=== PATIENT | female | born 1995 | race Caucasian/White ===

== ENCOUNTER → 2018-01-01 11:49 | Emergency (ER) | payer OTHER ==
[~2018-01-01 11:49] MED LIST: Azithromycin TAB* 250 MG PO ONE; DOXYcycline CAP(*) 100 MG PO ONE; Ondansetron ODT TAB* 4 MG PO ONE; Raltegravir* 400 MG TAB PO ONE; Tenofovir/Emtricitabine(*) TAB PO ONE; metroNIDAZOLE TAB* 250 MG PO ONE
[2018-01-01 14:17] LABS: ABS Basophils 0 10^3/ul (0-0.2); ABS Eosinophils 0.1 10^3/ul (0-0.6); ABS Monocytes 1.1 10^3/ul (0-0.8); ABS Neutrophils 6.8 10^3/ul (1.5-7.7); ABS Nucleated RBC 0 10^3/ul; Eosinophil % 0.7 % (0-6); Hematocrit 37 % (35-47); Hemoglobin 12.4 g/dl (12.0-16.0); Lymphocyte % 33.4 % (25-47); Mean Corpuscular HGB Conc 33 g/dl (31-36); Mean Corpuscular Hemoglobin 26 pg (27-31); Mean Corpuscular Volume 78 fL (80-97); Mean Platelet Volume 9 um3 (7.4-10.4); Nucleated Red Blood Cells % 0.1; Platelet Count 319 10^3/ul (150-450); Red Blood Count 4.78 10^6/ul (4.0-5.4); Red Cell Distribution Width 14 % (10.5-15)
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
[2018-01-01 19:08] VITALS: BP 108/56
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
== END | disposition home or self-care (01) ==
LOC: ED 11:49
DX: T74.21XA Adult sexual abuse, confirmed, initial encounter (principal)
CPT/HCPCS: 36415; 80053; 84702; 85025; 86703; 86706; 86803; 87340; 87480; 87491; 87510; 87591; 87661; 99283; A9270-GY

== ENCOUNTER 2018-04-25 11:07 | Emergency (ER) | payer SELFPAY ==
[2018-04-25 11:26] VITALS: BP 110/71
--- NOTE | 2018-04-25 13:12 | RAD ---
INDICATION: Right elbow pain with finger numbness since a fall April 16, 2018 COMPARISON: None. TECHNIQUE: 4 views right elbow. REPORT: The visualized bones of the right elbow are well corticated and properly aligned. There is no radiographically apparent fracture or dislocation. There is no radiographic evidence of pathologic joint effusion. IMPRESSION: Normal radiograph of the right elbow. If the patient's symptoms persist further follow-up imaging is recommended.
--- NOTE | 2018-04-25 14:52 | UC ---
Humphrey Moss Stephanie, scribed for Perico Murcia MD on 04/25/18 at 1151 . Upper Extremity HPI - HPI Summary HPI Summary: In Room Note: The pt is a 22 y/o F presenting to with c/o right elbow pain s/ p fall on April 16 2018. Symptoms include numbness and pain up the UE. She denies recent similar incidence. Note: Vital signs stable, afebrile. Visit hx non-contributory, asthma, autism. Nurse Note: right elbow pain - History of Current Complaint Chief Complaint: UCUpperExtremity Stated Complaint: ELBOW INJURY Time Seen by Provider: 04/25/18 11:41 Hx Obtained From: Patient Hx Last Menstrual Period: 03/25/18 ?: No Onset/Duration: Sudden Onset, Lasting Days - 10, Still Present Severity Currently: Moderate Pain Intensity: 6 Pain Scale Used: 0-10 Numeric Location Of Pain: Is Discrete @ - R elbow Aggravating Factor(s): Movement Alleviating Factor(s): Nothing Associated Signs And Symptoms: Positive: Numbness/Tingling - near elbow - Allergies/Home Medications Allergies/Adverse Reactions: Allergies Allergy/AdvReac Type Severity Reaction Status Date / Time No Known Allergies Allergy Verified 04/25/18 11:27 Home Medications: Home Medications NK [No Home Medications Reported] 04/25/18 [History Confirmed 04/25/18] PMH/Surg Hx/FS Hx/Imm Hx Previously Healthy: Yes Respiratory History: Asthma - Surgical History Surgical History: Yes Surgery Procedure, Year, and Place: eye lid - Family History Known Family History: Negative: Hypertension - Social History Occupation: Employed Part-time Lives: With Family Alcohol Use: Occasionally Substance Use Type: None Smoking Status (MU): Never Smoked Tobacco Review of Systems Constitutional: Negative Skin: Negative Eyes: Negative ENT: Negative Respiratory: Negative Cardiovascular: Negative Gastrointestinal: Negative Genitourinary: Negative Motor: Negative Neurovascular: Negative Musculoskeletal: Other: - Pain over R elbow Neurological: Numbness - R elbow All Other Systems Reviewed And Are Negative: Yes Physical Exam - Summary Physical Exam Summary: Appearance: The patient is well-appearing, is in no pain distress, and is well- nourished. Eyes: Conjunctiva are clear. ENT: The hearing is grossly normal, the pharynx is normal, and the TMs are normal. There is no muffled or hoarse voice. Neck: The neck is supple and there is no lymphadenopathy. Respiratory: The chest is nontender. The lungs are clear, there are normal breath sounds, and there is no respiratory distress. Cardiovascular: Heart is regular rate and rhythm. There is no murmur. Abdomen: The abdomen is soft and nontender. There is no organomegaly. Bowel sounds: present Musculoskeletal: Strength is intact. The patient moves all extremities. TENDERNESS DIFFUSELY OVER R ELBOW WITHOUT SWELLING. TENDER WITH REPRODUCIBLE SYMPTOMS AT MEDIAL ASPECT OF ELBOW OVER THE ULNAR TUNNEL. THERE IS NUMBNESS OF THE 5TH FINGER AND HALF OF THE 4TH FINGER. MOTOR AND CIRCULATION APPEAR INTACT. Neurological: The patient is alert. Psychological: The patient displays age appropriate behavior Skin: Negative for rashes. Triage Information Reviewed: Yes Vital Signs: Initial Vital Signs Temp 98.6 F 04/25/18 11:23 Pulse 94 04/25/18 11:23 Resp 16 04/25/18 11:23 BP 110/71 04/25/18 11:23 Pulse Ox 99 04/25/18 11:23 Vital Signs Reviewed: Yes Diagnostics - Radiology Elbow XRay Xray Interpretation: No Acute Changes Radiology Interpretation Completed By: Radiologist - Normal radiograph of the right elbow. If the patient's symptoms persist further follow-up imaging is recommended. physician has reviewed this report. Upper Extremity Course/Dx - Course Course Of Treatment: Medications have been included in the original chart and reviewed. Imaging pending on this 22-year-old who fell 10 days ago and now is complaining of symptoms consistent with compression of the ulnar nerve at the elbow. She has full strength but has sensory deficits on the fifth and part of the fourth finger. She has been instructed to take anti-inflammatories, to try to avoid flexion and leaning on the elbow. She has been given a neurology follow-up. Final x-rays have not been red, but she knows that she will be called if there is any abnormality. The diagnosis is cubital tunnel syndrome. x ray negative for fracture. - Differential Dx/Diagnosis Differential Diagnosis/HQI/PQRI: Other - ulnar nerve compression Provider Diagnoses: ulnar nerve compression Discharge - Sign-Out/Discharge Documenting (check all that apply): Discharge/Admit/Transfer - Discharge Plan Condition: Stable Disposition: HOME Patient Education Materials: Cubital Tunnel Syndrome (ED) Referrals: Forrest Pina MD [Medical Doctor] - No Primary Care Phys,NOPCP [Primary Care Provider] - Additional Instructions: PLEASE SEEK CARE AT THE EMERGENCY DEPARTMENT IF SYMPTOMS WORSEN OR IF NEW SYMPTOMS DEVELOP. FOLLOW UP WITH YOUR PRIMARY CARE PHYSICIAN. As we discussed, your symptoms are coming from compression of the nerves in your arm. There is no evidence of broken bones. The radiologist will do a final reading and we will call you if there is any change or any problems noted. See the attached instructions. Avoid putting any pressure on the elbow near the funny bone. Use ibuprofen 3-4 times a day for 100 mg for the next 3-7 days. This should slowly resolve over the next 2-6 weeks. Recheck at any time for increased pain or disability. Avoid excessive bending of the elbow. Try to keep straight when you sleep at night. Continue the name of a neurologist follow-up for further evaluation and treatment if this is not getting better over the next 4 weeks. Or, if there is increased pain or disability. If you have sudden worsening of symptoms go to the emergency department. - Billing Disposition and Condition Condition: STABLE Disposition: Home The documentation as recorded by the Humphrey rizo Stephanie accurately reflects the service I personally performed and the decisions made by me, Perico Murcia MD.
== END 2018-04-25 12:55 | disposition home or self-care (01) ==
LOC: UCEAST 11:07
DX: G56.21 Lesion of ulnar nerve, right upper limb (principal); J45.909 Unspecified asthma, uncomplicated
CPT/HCPCS: 99211; G0463